=== PATIENT | female | born 1965 | race Native Hawaiian/Other Pacific Islander ===

== ENCOUNTER 2018-09-22 08:45 | Day surgery (SDC) | payer OTHER ==
[2017-11-18 10:06] VITALS: BMI 25.7
[2018-09-22] MEDS ORDERED: Propofol 10 mg/ml Inj (20 ML) ONE (10:56)
[2018-09-22] MEDS ORDERED: Sodium Chloride 0.9% 1,000 ML IV SCH (11:30)
[2018-09-22 12:14] VITALS: BP 105/73; PULSE 77; RESP 19; TEMP 98.4; O2SAT 97
== END 2018-09-22 12:35 | disposition home or self-care (01) ==
LOC: ENDO 08:45
PROVIDERS: ATTEND Internal Medicine Gastroenterology
DX: Z12.11 Encounter for screening for malignant neoplasm of colon (principal); D12.0 Benign neoplasm of cecum; K57.30 Diverticulosis of large intestine without perforation or abscess without bleeding; K64.1 Second degree hemorrhoids; I10 Essential (primary) hypertension; E78.5 Hyperlipidemia, unspecified
CPT/HCPCS: 45380; 88305; J2704; J7030; J7040